=== PATIENT | female | born 1940 | race Caucasian/White ===

== ENCOUNTER 2018-06-18 06:51 | Day surgery (SDC) | payer OTHER, MEDICAID ==
[~2018-06-18] VITALS: Ht 162.6 cm; Wt 98.9 kg
[~2018-06-18 06:51] MED LIST: CETI1TAB36 PO; ENAL2.5T PO; FAMO-12 PO; FURO20TA3 PO; GABA-339 PO; HYDR-4441 PO; HYDR-531 PO; MECL12.554 PO; PAR20T PO; PRE5T PO; PREG100C PO; SIMV-8 PO; TRAZ-181 PO; WARF5TAB71 PO
[2018-06-18] MEDS ORDERED: LIDOCAINE VISCOUS 2% 15ML UD MT ONE (07:15)
[2018-06-18] MEDS ORDERED: MIDAZOLAM HCL 5 MG/ML-1ML VIAL IV ONE (07:15)
[2018-06-18] MEDS ORDERED: fentaNYL CITRATE 100 MCG/2 ML VL IV ONE (07:15)
[2018-06-18] MEDS ORDERED: MIDAZOLAM HCL 1MG/1ML-2 ML VIAL ONE (07:35)
== END 2018-06-18 10:43 | disposition home or self-care (01) ==
LOC: CATH 06:51
PROVIDERS: ATTEND Specialist
DX: I35.8 Other nonrheumatic aortic valve disorders (principal); Z91.013 Allergy to seafood; I11.0 Hypertensive heart disease with heart failure; I50.9 Heart failure, unspecified; E11.40 Type 2 diabetes mellitus with diabetic neuropathy, unspecified; A18.4 Tuberculosis of skin and subcutaneous tissue
CPT/HCPCS: 93005; 93312; J2250; J3010; J7030; 99152

== ENCOUNTER 2020-05-18 19:04 | Inpatient (IN) | payer OTHER, MEDICAID ==
[~2020-05-18] VITALS: Ht 162.6 cm; Wt 101.3 kg
[~2020-05-18 19:04] MED LIST changes: -ENAL2.5T PO; +ENAL2.5T7 PO; +HYDR-4188 PO; -HYDR-4441 PO; +MECL12.514 PO; -MECL12.554 PO
[2020-05-18] MEDS ORDERED: NITROGLYCERIN 0.4 MG SL TAB SL PRN (20:45)
[2020-05-18 22:00] VITALS: BP_SYST 132; BP_SYST 154; BP_DIAS 52; BP_DIAS 55
[2020-05-18] MEDS ORDERED: GABAPENTIN 400 MG CAP PO SCH (22:00)
[2020-05-18] MEDS ORDERED: PREGABALIN 25 MG CAP PO SCH (22:00)
[2020-05-18] MEDS ORDERED: PREGABALIN CAPSULE 75 MG CAP PO SCH (22:00)
[2020-05-18] MEDS ORDERED: MECLIZINE HCL 25 MG TAB PO PRN (22:30)
[2020-05-18] MEDS: FAMOTIDINE 20 MG TAB PO SCH (22:44)
[2020-05-18] MEDS: predniSONE 5 MG TAB PO SCH (22:45)
[2020-05-18] MEDS: traZODone HCL 50 MG TAB PO SCH (22:46)
[2020-05-18] MEDS: hydrOXYchloroQUINE SULFATE 200 MG TAB PO SCH (22:46)
[2020-05-18] MEDS: ATORVASTATIN 20 MG TAB PO SCH (22:46)
[2020-05-19] MEDS: HYDROcodone-ACET 10/325MG TAB PO PRN ×4 (01:28→22:00)
[2020-05-19 05:00] VITALS: BP 118/70
[2020-05-19] MEDS: FUROSEMIDE 20 MG TAB PO SCH ×2 (05:58→16:17)
[2020-05-19 06:22] LABS: Basophils # (auto) 0.1 10 ^3/uL (0-0.2); Basophils % (auto) 1.7 % (0.0-2.0); Eosinophils # (auto) 0.2 10 ^3/uL (0-0.8); Eosinophils % (auto) 3.1 % (0.0-7.0); Hemoglobin 7.6 g/dL (12.2-16.2); Lymphocytes # (auto) 0.9 10 ^3/uL (0.4-5.4); Lymphocytes % (auto) 17.6 % (10.0-50.0); Mean Corpuscular Hemoglobin 24.2 pg (28.0-32.0); Mean Corpuscular Hgb Conc. 31.8 g/dL (32.0-36.0); Mean Corpuscular Volume 76.1 fL (80.0-100.0); Monocytes # (auto) 0.4 10 ^3/uL (0-1.3); Monocytes % (auto) 7.7 % (0.0-12.0); Neutrophils # (auto) 3.7 10 ^3/uL (1.6-8.6); Neutrophils % (auto) 69.9 % (37.0-80.0); Nucleated Red Blood Cells % 0.3 %; Platelet Count (auto) 152 10^3/uL (140-450); Red Blood Cells 3.15 10^6/uL (4.0-5.20); Red Cell Distribution Width 19.5 % (11.8-14.3); White Blood Cell 5.4 10^3/uL (4.4-10.8)
[2020-05-19 06:25] LABS: INR 1.51 (0.9-1.15)
[2020-05-19 06:28] LABS: Calcium 8.5 mg/dL (8.5-10.1); Potassium 3.7 mmol/L (3.5-5.1)
[2020-05-19 06:30] LABS: BUN/Creatinine Ratio 12.4
[2020-05-19 09:13] VITALS: BP 143/57
[2020-05-19] MEDS: LORATADINE 10 MG TAB PO SCH (09:22)
[2020-05-19] MEDS: PANTOPRAZOLE 40 MG TAB PO SCH ×2 (09:25→22:00)
[2020-05-19] MEDS: PARoxetine 20 MG TAB PO SCH (09:25)
[2020-05-19] MEDS: hydrOXYchloroQUINE SULFATE 200 MG TAB PO SCH ×2 (09:26→22:00)
[2020-05-19] MEDS: ENALAPRIL MALEATE 2.5 MG TAB PO SCH (09:26)
[2020-05-19] MEDS: FAMOTIDINE 20 MG TAB PO SCH ×2 (09:31→22:00)
[2020-05-19 09:45] LABS: Free T3 2.36 pg/mL (2.3-4.2); Free T4 (Free Thyroxine) 0.92 ng/dL (0.89-1.76)
[2020-05-19] MEDS: predniSONE 20 MG TAB PO SCH ×2 (12:31→22:00)
[2020-05-19] MEDS: ENOXAPARIN SOD 40 MG/0.4 ML SYRINGE SC SCH (12:41)
[2020-05-19 14:13] LABS: Urine Bacteria NONE SEEN /hpf (None Seen); Urine Blood 1+ /uL (Negative); Urine Mucus FEW (None Seen); Urine Specific Gravity 1.011 (1.001-1.035); Urine WBC 20 /hpf (0 - 5)
[2020-05-19 14:24] VITALS: BP 128/57
[2020-05-19 16:52] VITALS: BP 148/83
[2020-05-19 20:00] VITALS: BP 160/77
[2020-05-19 22:00] VITALS: BP 160/77
[2020-05-19] MEDS: traZODone HCL 50 MG TAB PO SCH (22:00)
[2020-05-19] MEDS: predniSONE 5 MG TAB PO SCH (22:00)
[2020-05-19] MEDS: ATORVASTATIN 20 MG TAB PO SCH (22:00)
[2020-05-20 05:00] VITALS: BP 151/69
[2020-05-20] MEDS: FUROSEMIDE 20 MG TAB PO SCH (06:00)
[2020-05-20 06:30] LABS: Basophils # (auto) 0 10 ^3/uL (0-0.2); Eosinophils # (auto) 0 10 ^3/uL (0-0.8); Lymphocytes # (auto) 0.4 10 ^3/uL (0.4-5.4); Neutrophils # (auto) 3.4 10 ^3/uL (1.6-8.6); Nucleated Red Blood Cells % 0.1 %
[2020-05-20 06:34] LABS: Basophils % (auto) 0.4 % (0.0-2.0); Hematocrit 25.2 % (36.0-46.0); Hemoglobin 8.1 g/dL (12.2-16.2); Lymphocytes % (auto) 11.2 % (10.0-50.0); Mean Corpuscular Hemoglobin 24.4 pg (28.0-32.0); Mean Corpuscular Hgb Conc. 32.2 g/dL (32.0-36.0); Mean Corpuscular Volume 75.6 fL (80.0-100.0); Monocytes # (auto) 0.1 10 ^3/uL (0-1.3); Monocytes % (auto) 2.6 % (0.0-12.0); Neutrophils % (auto) 85.8 % (37.0-80.0); Platelet Count (auto) 154 10^3/uL (140-450); Red Blood Cells 3.33 10^6/uL (4.0-5.20)
[2020-05-20 06:45] LABS: Potassium 3.9 mmol/L (3.5-5.1)
[2020-05-20 06:49] LABS: Albumin 2.9 g/dL (3.4-5.0); BUN/Creatinine Ratio 15.6; Bilirubin, Total 0.3 mg/dL (0.2-1.0); Calcium 8.9 mg/dL (8.5-10.1); Red Cell Distribution Width 20.1 % (11.8-14.3); Total Protein 6.8 g/dL (6.4-8.2)
[2020-05-20 08:00] VITALS: BP 145/68
[2020-05-20 08:50] VITALS: BP 145/68
[2020-05-20] MEDS: ENOXAPARIN SOD 40 MG/0.4 ML SYRINGE SC SCH (08:54)
[2020-05-20] MEDS: predniSONE 20 MG TAB PO SCH (08:54)
[2020-05-20] MEDS: hydrOXYchloroQUINE SULFATE 200 MG TAB PO SCH ×2 (08:54→21:18)
[2020-05-20] MEDS: FAMOTIDINE 20 MG TAB PO SCH ×2 (08:55→21:18)
[2020-05-20] MEDS: ENALAPRIL MALEATE 2.5 MG TAB PO SCH (08:55)
[2020-05-20] MEDS: PANTOPRAZOLE 40 MG TAB PO SCH ×2 (08:56→21:19)
[2020-05-20] MEDS: LORATADINE 10 MG TAB PO SCH (08:56)
[2020-05-20] MEDS: HYDROcodone-ACET 10/325MG TAB PO PRN ×3 (08:56→21:31)
[2020-05-20] MEDS: PARoxetine 20 MG TAB PO SCH (08:56)
[2020-05-20 09:00] VITALS: BP 111/85
[2020-05-20] MEDS ORDERED: ACETAMINOPHEN 325 MG TAB PO PRN (09:00)
[2020-05-20] MEDS ORDERED: FUROSEMIDE 20 MG/2 ML VIAL IV ONE (09:00)
[2020-05-20] MEDS ORDERED: PROMETHAZINE HCL 25 MG/ML 1ML IV PRN (09:00)
[2020-05-20] MEDS: IPRATROPIUM BROM 0.5 MG/2.5ML INH SOL NEB SCH ×2 (09:39→18:21)
[2020-05-20] MEDS: LEVALBUTEROL HCL 1.25 MG/3 ML NEB NEB SCH ×2 (09:39→18:21)
[2020-05-20] MEDS: BUDESONIDE (INHALATION) 0.5 MG/2 ML NEB NEB SCH ×2 (09:41→22:06)
[2020-05-20] MEDS: methylPREDNISolone SOD SUCC 40 MG/ML VL IV SCH ×2 (09:50→17:28)
[2020-05-20] MEDS ORDERED: predniSONE 20 MG TAB PO SCH (10:00)
[2020-05-20] MEDS: IRON SUCROSE COMPLEX 200 MG in SODIUM CHL 0.9% 100 ML IV SCH (12:02)
[2020-05-20] MEDS: GABAPENTIN 300 MG CAP PO SCH ×2 (12:02→21:18)
[2020-05-20] MEDS ORDERED: DEXTROSE (50%) 50ML SYRG IV PRN (15:00)
[2020-05-20 16:41] VITALS: BP 114/67
[2020-05-20] MEDS: ACCU-CHEK COMFORT CURVE STRIP VI SCH ×2 (17:29→23:32)
[2020-05-20] MEDS: InsuLIN REG 1unit/0.01ml Soln (100units/ml) SC SCH ×2 (18:00→23:31)
[2020-05-20] MEDS: ATORVASTATIN 20 MG TAB PO SCH (21:17)
[2020-05-20] MEDS: traZODone HCL 50 MG TAB PO SCH (21:17)
[2020-05-20 22:21] VITALS: BP 136/74
[2020-05-21] MEDS: methylPREDNISolone SOD SUCC 40 MG/ML VL IV SCH ×3 (00:53→18:07)
[2020-05-21] MEDS: InsuLIN REG 1unit/0.01ml Soln (100units/ml) SC SCH ×3 (05:01→18:09)
[2020-05-21 05:02] VITALS: BP 137/68
[2020-05-21] MEDS: ACCU-CHEK COMFORT CURVE STRIP VI SCH ×3 (05:02→18:07)
[2020-05-21] MEDS: GABAPENTIN 300 MG CAP PO SCH ×2 (05:32→14:14)
[2020-05-21] MEDS: IPRATROPIUM BROM 0.5 MG/2.5ML INH SOL NEB SCH ×3 (06:21→18:00)
[2020-05-21] MEDS: LEVALBUTEROL HCL 1.25 MG/3 ML NEB NEB SCH ×4 (06:21→18:00)
[2020-05-21] MEDS: BUDESONIDE (INHALATION) 0.5 MG/2 ML NEB NEB SCH (06:21)
[2020-05-21] MEDS ORDERED: LIDOCAINE 2%HCL (LOCAL ANESTH.) INJ 20ML MDV ONE (07:25)
[2020-05-21] MEDS ORDERED: IOPAMIDOL 76 % (ISOVUE-370) 100ML BTL IV ONE (07:26)
[2020-05-21] MEDS ORDERED: HEPARIN IN NS 1000Units/500mL 1,500 ML ONE (07:26)
[2020-05-21] MEDS ORDERED: HEPARIN SODIUM (PORCINE) 5000 UNITS/ML 1ML VIAL ONE (07:54)
[2020-05-21] MEDS ORDERED: ANGIOMAX 250 MG VIAL IV ONE (07:54)
[2020-05-21] MEDS ORDERED: VERAPAMIL 2.5MG/ML INJ 2ML VIAL IV ONE (07:54)
[2020-05-21] MEDS ORDERED: fentaNYL CITRATE 100 MCG/2 ML VL ONE (07:54)
[2020-05-21] MEDS ORDERED: MIDAZOLAM HCL 1MG/1ML-2 ML VIAL ONE (07:55)
[2020-05-21] MEDS ORDERED: SODIUM CHL 0.9% 0 ML ONE (07:55)
[2020-05-21 08:00] VITALS: BP 148/66
[2020-05-21] MEDS ORDERED: diphenhdrAMINE HCL 50 MG/1 ML VL ONE (08:02)
[2020-05-21] MEDS ORDERED: methylPREDNISolone SOD SUCC 125 MG/2 ML VL ONE (08:02)
[2020-05-21] MEDS ORDERED: FAMOTIDINE (10MG/ML) 2ML VL IV ONE (08:02)
[2020-05-21] MEDS: HYDROcodone-ACET 10/325MG TAB PO PRN ×2 (09:47→18:18)
[2020-05-21] MEDS: LORATADINE 10 MG TAB PO SCH (09:49)
[2020-05-21] MEDS: PARoxetine 20 MG TAB PO SCH (09:49)
[2020-05-21] MEDS: hydrOXYchloroQUINE SULFATE 200 MG TAB PO SCH (09:50)
[2020-05-21] MEDS: FAMOTIDINE 20 MG TAB PO SCH (09:51)
[2020-05-21] MEDS: ENALAPRIL MALEATE 2.5 MG TAB PO SCH (09:57)
[2020-05-21] MEDS: PANTOPRAZOLE 40 MG TAB PO SCH (09:58)
[2020-05-21] MEDS: ENOXAPARIN SOD 40 MG/0.4 ML SYRINGE SC SCH (09:59)
[2020-05-21] MEDS ORDERED: FUROSEMIDE 40 MG TAB PO SCH (10:00)
[2020-05-21 13:00] VITALS: BP 136/69
[2020-05-21] MEDS: IRON SUCROSE COMPLEX 200 MG in SODIUM CHL 0.9% 100 ML IV SCH (14:13)
[2020-05-21 17:00] VITALS: BP 146/62
[2020-05-21 18:44] VITALS: BP 146/62
== END 2020-05-21 19:46 | disposition short-term general hospital (02) | DRG 286 ==
LOC: TELE-CENTR 19:51
PROVIDERS: ADMIT Specialist; ATTEND Specialist
PROC: 05HB33Z Insertion of Infusion Device into Right Basilic Vein, Percutaneous Approach (ICD-10-PCS; 2020-05-19)
PROC: B54MZZA Ultrasonography of Right Upper Extremity Veins, Guidance (ICD-10-PCS; 2020-05-19)
PROC: B2111ZZ Fluoroscopy of Multiple Coronary Arteries using Low Osmolar Contrast (ICD-10-PCS; principal; 2020-05-21)
DX: I35.0 Nonrheumatic aortic (valve) stenosis (principal); I50.33 Acute on chronic diastolic (congestive) heart failure; I25.110 Atherosclerotic heart disease of native coronary artery with unstable angina pectoris; D84.9 Immunodeficiency, unspecified; I13.0 Hypertensive heart and chronic kidney disease with heart failure and stage 1 through stage 4 chronic kidney disease, or unspecified chronic kidney disease; J43.9 Emphysema, unspecified; M06.9 Rheumatoid arthritis, unspecified; K21.9 Gastro-esophageal reflux disease without esophagitis; G62.9 Polyneuropathy, unspecified; Z20.822 Contact with and (suspected) exposure to COVID-19; D63.8 Anemia in other chronic diseases classified elsewhere; F32.9 Major depressive disorder, single episode, unspecified; E78.5 Hyperlipidemia, unspecified; E66.01 Morbid (severe) obesity due to excess calories; N18.9 Chronic kidney disease, unspecified; Z79.01 Long term (current) use of anticoagulants; Z82.49 Family history of ischemic heart disease and other diseases of the circulatory system; Z87.891 Personal history of nicotine dependence; Z91.041 Radiographic dye allergy status; Z86.711 Personal history of pulmonary embolism; Z95.828 Presence of other vascular implants and grafts; Z68.39 Body mass index [BMI] 39.0-39.9, adult; Z88.2 Allergy status to sulfonamides
CPT/HCPCS: 36415; 71045; 71250; 80048; 80053; 80061; 81001; 82962; 84436; 84439; 84443; 84481; 84484; 85025; 85610; 86850; 86900; 86901; 87086; 87088; 87186; 87426; 93306; 93454; 94640; 97110; 99152; 99153; G0378; J1756; J1815; J2250; J3490